=== PATIENT | male | born 1965 | race Caucasian/White ===

== ENCOUNTER 2023-11-14 14:43 | Outpatient (AMB) | payer BC, SELFPAY ==
--- NOTE | 2023-11-14 14:46 | MHC.OFFVIS ---
Vital Signs 11/14/23 14:47 Height 6 ft 1 in Weight 236 lb 15.951 oz BMI 31.3 BP 142/80 H Blood Pressure Location Rt brachial Position Sitting Pulse 80 Pulse Source Doppler Pulse Oximetry (%) 97 Oxygen Delivery Method Room Air Intake Visit Reasons: Chronic Cough Allergies No Known Allergies Allergy (Verified 11/14/23 14:50) HPI HPI Chronic Cough : Details: 58-year-old gentleman, nonsmoker, with underlying history of hypertension previously on lisinopril, switch to losartan secondary to concern for cough referred for evaluation of his chronic nonproductive cough. Patient states that cough does not change with the day, with food intake, or changing body position. He denies prior personal or family history of lung disease. 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 He denies environmental allergies. Patient does have dogs as pets. [facility] Social History (Updated 11/14/23 @ 14:52 by Stephenie Horner Jeff) Patient Tobacco Use Status: Never used Tobacco Review of Systems Const Denies daytime sleepiness, Denies excessive sweating, Denies fatigue, Denies fever(s), Denies lethargy, Denies malaise, Denies night sweats, Denies snoring and Denies weight loss Eyes Denies blurry vision and Denies itchy eyes ENT Denies nasal congestion, Denies post nasal drip, Denies sinus pain, Denies sinus pressure and Denies other ( Thrush) Card Denies chest pain, Denies pedal edema, Denies dyspnea, Denies orthopnea and Denies paroxysmal nocturnal dyspnea Resp Reports cough, Denies hemoptysis, Denies excessive phlegm production, Denies dyspnea, Denies snoring and Denies wheezing GI Denies abdominal pain and Denies heartburn Musc Denies myalgias, Denies arthralgias and Denies joint swelling Skin/Breast Denies rash Neuro Denies memory loss and Denies seizure-like activity Psych Denies abnormal sleep pattern, Denies anxiety and Denies memory loss Endo Denies excessive sweating, Denies fatigue and Denies heat intolerance Александр/Lymph Denies easy bruising Aller/Immun Denies itchy eyes, Denies seasonal rhinorrhea and Denies wheezing Physical Exam Vital Signs: Last Vital Signs Pulse 80 11/14/23 14:47 BP 142/80 H 11/14/23 14:47 Pulse Ox 97 11/14/23 14:47 Oxygen Delivery Method Room Air 11/14/23 14:47 BMI result Body Mass Index 31.3 Const General: no acute distress and alert Nutritional Appearance: not obese Orientation/consciousness: Other orientation findings ( oriented) HEENT Head: Yes atraumatic Eyes General: appearance normal, both eyes and all related structures Sclerae: sclerae normal EOM: EOMs intact bilaterally Neck Neck: Yes supple Lymphatic: no lymphadenopathy noted Resp Effort & Inspection: normal respiratory effort and no use of accessory muscles Auscultation: clear to auscultation bilaterally Cardio Rate: regular rate Rhythm: regular rhythm Heart sounds: no gallops, no murmurs and no rubs Skin General skin exam: other ( warm) Extrem General: No clubbing, No cyanosis and No edema Assessment & Plan Assessment & Plan (1) Cough: Code(s): R05.9 - Cough, unspecified Category: Medical Plan: Unclear etiology, may have informative interstitial lung disease component. Will start on empiric Arnuity. (2) ILD (interstitial lung disease): Code(s): J84.9 - Interstitial pulmonary disease, unspecified Category: Medical Plan: Occupational exposure to jet cm. Will obtain CT chest to rule out early interstitial lung disease. Orders: Orders CT chest wo IV con Today J84.9 - Interstitial pulmonary disease, unspecified Medications: New fluticasone furoate 200 mcg/actuation (Arnuity Ellipta) 1 inh inhalation DAILY 30 days 1 ea 6RF Coding Level of Care Code New Pt Level 4 (21284) Diagnoses Cough R05.9 ILD (interstitial lung disease) J84.9
[2023-11-14 14:47] VITALS: BP 142/80; PULSE 80; O2SAT 97; BMI 31.3
== END 2023-11-14 15:06 | disposition home or self-care (01) ==
PROVIDERS: PCP Internal Medicine; Referring Provider Nurse Practitioner Primary Care; Visit Provider Internal Medicine Pulmonary Disease
DX: R05.9 Cough, unspecified (principal); J84.9 Interstitial pulmonary disease, unspecified
CPT/HCPCS: 99204

== ENCOUNTER → 2023-11-14 14:43 | Outpatient (BNVA) | payer BC, SELFPAY | PROVIDERS: PCP Internal Medicine; Referring Provider Nurse Practitioner Primary Care; Visit Provider Internal Medicine Pulmonary Disease ==

== ENCOUNTER 2023-12-23 14:32 | Outpatient (REF) | payer BC, SELFPAY ==
--- NOTE | ~2023-12-23 | CT_ITS ---
EXAMINATION: CT CHEST WITHOUT CONTRAST CLINICAL INFORMATION: Interstitial pulmonary disease. COMPARISON: None available. TECHNIQUE: Multidetector volumetric CT imaging of the chest was done. Axial MIP volume rendering provided. Sagittal and coronal reformatted images were obtained. This CT examination was performed using dose optimization techniques as appropriate, variously including the following: *Automated exposure control *Adjustment of mA and/or kV according to patient size (this includes techniques or standardized protocols for targeted exams where dose is matched to indication/reason for exam; i.e. extremities or head) *Use of iterative reconstruction technique DLP: 199 mGy-cm FINDINGS: LUNGS: Some minimal, if any, emphysematous changes are present at the apices. There is diffuse mild bronchial thickening present. No worrisome pulmonary nodules are seen. No significant subpleural reticulation is seen. There are no ground-glass changes. There is no honeycombing. Atelectasis is present in both the lingula and right middle lobe. MEDIASTINUM: The mediastinum is normal. CORONARY ARTERY CALCIFICATION: Extensive. PLEURA: There is no pleural effusion. No pleural mass or thickening. AXILLA: No lymphadenopathy. UPPER ABDOMEN: Spleen is enlarged at 14 cm in greatest transverse dimension. Visualized upper abdomen otherwise unremarkable. OSSEOUS STRUCTURES: Unremarkable. CT/CT chest wo IV con IMPRESSION: 1. No evidence of interstitial lung disease. 2. Mild bronchial thickening. 3. Minimal, if any, emphysematous changes at the apices. Fleischner guidelines were followed.
== END 2023-12-23 14:33 | disposition home or self-care (01) ==
LOC: HO.CT 14:32
PROVIDERS: PCP Nurse Practitioner Primary Care; Visit Provider Internal Medicine Pulmonary Disease
DX: J84.9 Interstitial pulmonary disease, unspecified (principal)
CPT/HCPCS: 71250

== ENCOUNTER 2024-01-11 14:54 | Outpatient (AMB) | payer BC, SELFPAY ==
--- NOTE | 2024-01-11 14:55 | A.OFFVIS_ITS ---
Vital Signs 01/11/24 14:56 Height 6 ft 1 in Weight 229 lb 4.492 oz BMI 30.2 BP 134/76 Blood Pressure Location Rt brachial Position Sitting Pulse 92 Pulse Source Doppler Pulse Oximetry (%) 97 Oxygen Delivery Method Room Air Intake Visit Reasons: Chronic Cough Allergies No Known Allergies Allergy (Verified 01/11/24 15:00) HPI HPI Chronic Cough : Details: 58-year-old gentleman, nonsmoker, with underlying history of hypertension previously on lisinopril, switch to losartan secondary to concern for cough referred for evaluation of his chronic nonproductive cough. Patient states that cough does not change with the day, with food intake, or changing body position. He denies prior personal or family history of lung disease. 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 He denies environmental allergies. Patient does have dogs as pets. After the last office visit he was started on Pulmicort with improvement in his symptoms, though not complete resolution. Patient also did complete his CT chest that did not demonstrate any underlying fibrosis. He does say that dry air make his symptoms worse. [facility] Social History (Updated 11/14/23 @ 14:52 by Stephenie Horner Jeff) Patient Tobacco Use Status: Never used Tobacco Review of Systems Const Denies daytime sleepiness, Denies excessive sweating, Denies fatigue, Denies fever(s), Denies lethargy, Denies malaise, Denies night sweats, Denies snoring and Denies weight loss Eyes Denies blurry vision and Denies itchy eyes ENT Denies nasal congestion, Denies post nasal drip, Denies sinus pain, Denies sinus pressure and Denies other ( Thrush) Card Denies chest pain, Denies pedal edema, Denies dyspnea, Denies orthopnea and Denies paroxysmal nocturnal dyspnea Resp Reports cough, Denies hemoptysis, Denies excessive phlegm production, Denies dyspnea, Denies snoring and Denies wheezing GI Denies abdominal pain and Denies heartburn Musc Denies myalgias, Denies arthralgias and Denies joint swelling Skin/Breast Denies rash Neuro Denies memory loss and Denies seizure-like activity Psych Denies abnormal sleep pattern, Denies anxiety and Denies memory loss Endo Denies excessive sweating, Denies fatigue and Denies heat intolerance Александр/Lymph Denies easy bruising Aller/Immun Denies itchy eyes, Denies seasonal rhinorrhea and Denies wheezing Physical Exam Vital Signs: Last Vital Signs Pulse 92 01/11/24 14:56 BP 134/76 01/11/24 14:56 Pulse Ox 97 01/11/24 14:56 Oxygen Delivery Method Room Air 01/11/24 14:56 BMI result Body Mass Index 30.2 Const General: no acute distress and alert Nutritional Appearance: not obese Orientation/consciousness: Other orientation findings ( oriented) HEENT Head: Yes atraumatic Eyes General: appearance normal, both eyes and all related structures Sclerae: sclerae normal EOM: EOMs intact bilaterally Neck Neck: Yes supple Lymphatic: no lymphadenopathy noted Resp Effort & Inspection: normal respiratory effort and no use of accessory muscles Auscultation: clear to auscultation bilaterally Cardio Rate: regular rate Rhythm: regular rhythm Heart sounds: no gallops, no murmurs and no rubs Skin General skin exam: other ( warm) Extrem General: No clubbing, No cyanosis and No edema Assessment & Plan Assessment & Plan (1) Reactive airway disease: Code(s): J45.909 - Unspecified asthma, uncomplicated Category: Medical (2) Cough: Code(s): R05.9 - Cough, unspecified Category: Medical Plan Results of CT chest reviewed, no evidence of underlying fibrosis. Underlying reactive airway disease with reaction to dry air. Symptomatically improved on Pulmicort. Continue current regimen. Coding Level of Care Code Est Pt Level 3 (49664) Diagnoses Reactive airway disease J45.909 Cough R05.9
[2024-01-11 14:56] VITALS: BP 134/76; PULSE 92; O2SAT 97; BMI 30.2
== END 2024-01-11 15:08 | disposition home or self-care (01) ==
PROVIDERS: PCP Internal Medicine; Visit Provider Internal Medicine Pulmonary Disease
DX: J45.909 Unspecified asthma, uncomplicated (principal); R05.9 Cough, unspecified
CPT/HCPCS: 99213

== ENCOUNTER → 2024-01-11 14:54 | Outpatient (BNVA) | payer BC, SELFPAY | PROVIDERS: PCP Internal Medicine; Visit Provider Internal Medicine Pulmonary Disease ==